=== PATIENT | male | born 1960 | race Caucasian/White ===

== ENCOUNTER → 2016-07-13 | Outpatient (CLI) | payer BC | LOC: RAD 11:07 | DX: M79.662 Pain in left lower leg (principal) ==

== ENCOUNTER 2016-08-12 09:43 | Outpatient (RCR) | payer BC | END 2016-11-04 10:39 | disposition home or self-care (01) | LOC: PT 09:43 | DX: G20 Parkinson's disease (principal); G25.81 Restless legs syndrome ==